=== PATIENT | female | born 1955 | race Two or more races ===

== ENCOUNTER 2017-09-25 22:42 | Emergency (ER) | payer MEDICAID, OTHER ==
[~2017-09-25] VITALS: Ht 167.6 cm; Wt 90.7 kg
[2017-09-26 01:55] VITALS: BP 146/86
== END 2017-09-26 03:30 | disposition home or self-care (01) ==
LOC: ER 22:42
DX: M47.896 Other spondylosis, lumbar region (principal); K21.9 Gastro-esophageal reflux disease without esophagitis; Z85.3 Personal history of malignant neoplasm of breast
CPT/HCPCS: 70490; 72125

== ENCOUNTER → 2018-04-02 | Emergency (ER) | payer OTHER | END | disposition left against medical advice (07) | LOC: ER 21:47 | DX: M79.604 Pain in right leg (principal); Z53.21 Procedure and treatment not carried out due to patient leaving prior to being seen by health care provider ==

== ENCOUNTER 2018-04-03 13:16 | Emergency (ER) | payer OTHER ==
[~2018-04-03] VITALS: Ht 167.6 cm; Wt 90.7 kg
[2018-04-03 13:46] VITALS: BP 135/67
== END 2018-04-03 14:43 | disposition home or self-care (01) ==
LOC: ER 13:16
DX: S92.354A Nondisplaced fracture of fifth metatarsal bone, right foot, initial encounter for closed fracture (principal); E11.9 Type 2 diabetes mellitus without complications; W19.XXXA Unspecified fall, initial encounter; Y93.01 Activity, walking, marching and hiking; Y92.89 Other specified places as the place of occurrence of the external cause; Y99.8 Other external cause status
CPT/HCPCS: 29515; 73630

== ENCOUNTER 2018-12-25 23:10 | Emergency (ER) | payer OTHER ==
[~2018-12-25] VITALS: Ht 167.6 cm; Wt 81.6 kg
[2018-12-25 23:52] VITALS: BP 144/76
== END 2018-12-26 02:37 | disposition left against medical advice (07) ==
LOC: ER 23:10
DX: M25.512 Pain in left shoulder (principal); M25.511 Pain in right shoulder; R51 Headache; M54.2 Cervicalgia; Z53.21 Procedure and treatment not carried out due to patient leaving prior to being seen by health care provider; V43.52XA Car driver injured in collision with other type car in traffic accident, initial encounter; Y93.I9 Activity, other involving external motion; Y92.488 Other paved roadways as the place of occurrence of the external cause; Y99.8 Other external cause status
CPT/HCPCS: 70450; 72125; 73030

== ENCOUNTER 2018-12-26 08:57 | Emergency (ER) | payer OTHER | END 2018-12-26 09:25 | disposition left against medical advice (07) | LOC: ER 09:01 | DX: M54.5 Low back pain (principal); Z04.1 Encounter for examination and observation following transport accident; Z53.21 Procedure and treatment not carried out due to patient leaving prior to being seen by health care provider ==